=== PATIENT | male | born 1995 | race Caucasian/White ===

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

== ENCOUNTER 2018-07-26 14:21 | Inpatient (IN) ==
--- NOTE | 2018-07-26 15:09 | Emergency Department Note ---
Entered by Stephane Padgett acting as a scribe for Danilo Yu DO History of Present Illness General Chief complaint: Mental Health Evaluation Stated complaint: SUICIDAL IDEATION Source: patient Mode of arrival: ambulatory History of Present Illness Provider complaint: SI Onset (ago): week(s) 2 Location: head Pain Consistency: + constant Quality: + other (SI) Associated symptoms: no cough and no headaches Treatments prior to arrival: other (Antidepressants) Patient is a 22 year old male who presents himself to ER with complains of suicidal ideation starting 2 weeks ago. 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 Initially the antid epressants were prescribed for anxiety but he has noticed these suicidal thoughts to have started in the last few days. Patient reports earlier visiting [facility] and was told to come to the ER if symptoms get worse. He notes reporting having gone through a breakup earlier in the last week , heavy studying for his MCAT exam as well as some family issues, which may be exacerbating his symptoms. Patient denies alcohol or drug use. Patient also denies coughs and headaches. Home Medications Home Medications Medication Instructions Recorded Confirmed Type budesonide 0.6 mg PO BID 07/26/18 07/26/18 History doxycycline hyclate 100 mg PO DAILY 07/26/18 07/26/18 History escitalopram oxalate 10 mg PO DAILY 07/26/18 07/26/18 History lorazepam 0.5 mg PO BID PRN 07/26/18 07/26/18 History tretinoin 1 applic TOPICAL HS 07/26/18 07/26/18 History Allergies Allergy/AdvReac Type Severity Reaction Status Date / Time No Known Allergies Allergy Verified 03/26/18 19:16 Past Med/Surg History Medical History Epididymitis (Resolved) Asthma (Chronic) Anxiety (Chronic) Myalgia Recurrent sinusitis (Resolved) Sinusitis (Resolved) Suicidal thoughts URI (upper respiratory infection) (Resolved) Vomiting (Resolved) Social History Preferred Language: Japanese Communication Ability: Effective Store Group Manager Required: No Beliefs That Will Affect Care: None current occupational status: student Feels Safe at Home: Yes Smoking Status: Never smoker Review of Systems See HPI for pertinent positives & negatives. and A total of 10 systems reviewed and were otherwise negative Physical Exam Vital Signs Vital Signs - 24 hr 07/26/18 14:26 07/26/18 17:20 07/26/18 20:35 Temperature 36.8 C 36.7 C Temperature Source Oral Oral Sepsis Recent Fever Within 48 Hours No Sepsis New/Unexplained Change in Mental Status No Sepsis Action Taken by Nursing No Action Required Pulse Rate 59 L 62 Pulse Rate [Left Brachial] Pulse Rate [Right] 63 Pulse Rhythm [Left Brachial] Pulse Rhythm [Right] Pulse Strength [Left Brachial] Pulse Strength [Right] Respiratory Rate 16 18 18 Respiratory Effort / Characteristics Non-Labored Respiratory Depth Normal Respiratory Pattern Blood Pressure 137/80 135/67 Blood Pressure [Left Arm] Blood Pressure [Right Arm] 114/66 Blood Pressure Mean 99 Blood Pressure Mean [Left Arm] Blood Pressure Mean [Right Arm] 82 Blood Pressure Position [Left Arm] Blood Pressure Position [Right Arm] Pulse Oximetry 100 99 98 Oxygen Delivery Method Room Air Room Air Room Air 07/26/18 21:51 07/26/18 21:58 07/27/18 06:39 Temperature 36.8 C 36.5 C Temperature Source Oral Oral Sepsis Recent Fever Within 48 Hours Sepsis New/Unexplained Change in Mental Status Sepsis Action Taken by Nursing Pulse Rate Pulse Rate [Left Brachial] 55 L Pulse Rate [Right] 57 L Pulse Rhythm [Left Brachial] Regular Pulse Rhythm [Right] Regular Pulse Strength [Left Brachial] Normal Pulse Strength [Right] Normal Respiratory Rate 14 16 Respiratory Effort / Characteristics Non-Labored Non-Labored Non-Labored Respiratory Depth Normal Normal Respiratory Pattern Regular Regular Regular Blood Pressure Blood Pressure [Left Arm] 103/61 Blood Pressure [Right Arm] 129/76 Blood Pressure Mean Blood Pressure Mean [Left Arm] 75 Blood Pressure Mean [Right Arm] 93 Blood Pressure Position [Left Arm] Lying Blood Pressure Position [Right Arm] Sitting Pulse Oximetry Oxygen Delivery Method 07/27/18 06:40 Temperature Temperature Source Sepsis Recent Fever Within 48 Hours Sepsis New/Unexplained Change in Mental Status Sepsis Action Taken by Nursing Pulse Rate Pulse Rate [Left Brachial] 81 Pulse Rate [Right] Pulse Rhythm [Left Brachial] Regular Pulse Rhythm [Right] Pulse Strength [Left Brachial] Normal Pulse Strength [Right] Respiratory Rate Respiratory Effort / Characteristics Respiratory Depth Respiratory Pattern Blood Pressure Blood Pressure [Left Arm] 106/63 Blood Pressure [Right Arm] Blood Pressure Mean Blood Pressure Mean [Left Arm] 77 Blood Pressure Mean [Right Arm] Blood Pressure Position [Left Arm] Sitting Blood Pressure Position [Right Arm] Pulse Oximetry Oxygen Delivery Method GENERAL: Patient is awake alert in no acute distress patient is resting comfortably and showing no signs of anxiety EYES: The conjunctivae are clear. The pupils are round and reactive. EARS, NOSE, MOUTH AND THROAT: The nose is without any evidence of any deformity. Mucous membranes are moist tongue is midline NECK: The neck is nontender and supple. RESPIRATORY: Normal respiratory effort is noted there is no evidence of wheezing rhonchi or rales CARDIOVASCULAR: Regular rate and rhythm noted there no murmurs rubs or gallops normal S1 normal S2 GASTROINTESTINAL: The abdomen is soft. Bowel sounds are present in all quadrants. Abdomen is nontender MUSCULOSKELETAL/EXTREMITIES: There is no evidence of gross deformity full range of motion is noted in the hips and shoulders SKIN: There is no obvious evidence of any rash. There are no petechiae, pallor or cyanosis noted. NEUROLOGIC: Patient is awake alert and oriented x3 strength is symmetric patellar reflexes are 2+ bilaterally PSYCH: Affect is flat. Patient makes very poor eye contact. Patient is currently admitting to suicidal ideation with plan to overdose on pills. Course 1442: Past medical records reviewed. The patient was evaluated in room A7, and a complete history and physical examination were performed. 1833: I reevaluated the patient. 2020: Patient will be admitted for in patient care in [address] [place] [address]. He has verbalized agreement for treatment. Administered Medications Doxycycline Hyclate (Vibramycin) 100 mg PO DAILY [facility] Stop: 08/06/18 08:59 Last Admin: 07/27/18 09:05 Dose: 100 mg Documented by: [id number] Budesonide 0.6mg Caps: Non-Formulary Patient's Own Med 1 ea JOSE E BID DEENA Stop: 08/25/18 20:59 Last Admin: 07/27/18 09:07 Dose: Not Given Documented by: [id number] Admin: 07/26/18 21:31 Dose: 1 ea Documented by: [id number] Tretinoin Cream 0.05 %: Non-Formulary Patient's Own Med 1 ea TOP HS DEENA Stop: 08/25/18 21:59 Last Admin: 07/26/18 21:41 Dose: 1 ea Documented by: [id number] Discontinued Medications Lorazepam (Ativan) 1 mg PO NOW STA Stop: 07/26/18 16:39 Last Admin: 07/26/18 16:43 Dose: 1 mg Documented by: [id number] Medical Decision Making Differential Diagnosis differential includes toxic ingestions, self-mutilation, suicidal ideation, suicide attempt, depression. Medical Records Attestation: I reviewed the patient's medical records. Home Medications Current Medication List: was personally reviewed by me Laboratory Data Attestation: I reviewed the patient's lab results. Result diagrams: 07/26/18 17:07 07/26/18 17:07 Lab Results 07/26/18 07/26/18 07/26/18 Range/Units 15:00 15:00 17:07 WBC 6.24 (4.8-10.8) K/uL RBC 5.37 (4.7-6.1) M/uL Hgb 14.7 (14.0-18.0) g/dL Hct 44.2 (42-52) % MCV 82.3 (80-100) fL MCH 27.4 (25-34) pg MCHC 33.3 (32-36) g/dL RDW Std Deviation 37.1 (36.4-46.3) fL RDW Coeff of Tery 12.5 (11.5-14.5) % Plt Count 197 (130-400) K/uL MPV 10.3 (7.4-10.4) fL Immature Gran % (Auto) 0.2 % Neut % (Auto) 55.6 % Lymph % (Auto) 36.2 % Wallace % (Auto) 7.2 % Eos % (Auto) 0.5 % Baso % (Auto) 0.3 % Immature Gran # (Auto) 0.01 (0.00-0.02) K/uL Neut # (Auto) 3.47 (1.4-6.5) K/uL Lymph # (Auto) 2.26 (1.2-3.4) K/uL Wallace # (Auto) 0.45 (0.11-0.59) K/uL Eos # (Auto) 0.03 (0-0.5) K/uL Baso # (Auto) 0.02 (0-0.2) K/uL Sodium (136-145) mmol/L Potassium (3.5-5.1) mmol/L Chloride (98-107) mmol/L Carbon Dioxide (21-32) mmol/L Anion Gap (3-11) BUN (7-18) mg/dl Creatinine (0.6-1.4) mg/dl Est Cr Clr Drug Dosing ml/min Est GFR ( Amer) Est GFR (Non-Af Amer) BUN/Creatinine Ratio (10-20) Glucose (70-99) mg/dl Calcium (8.5-10.1) mg/dl Total Bilirubin (0.2-1) mg/dl AST (15-37) U/L ALT (12-78) U/L Alkaline Phosphatase (45-117) U/L Total Protein (6.4-8.2) gm/dl Albumin (3.4-5.0) gm/dl Globulin (2.5-4.0) gm/dl Albumin/Globulin Ratio (0.9-2) TSH (0.300-4.500) uIu/ml Urine Color Yellow Urine Appearance Clear (Clear) Urine pH 7.0 (4.5-7.5) Ur Specific Prentice 1.029 (1.000-1.030) Urine Protein Negative (Negative) Urine Glucose (UA) Negative (Negative) Urine Ketones Negative (Negative) Urine Blood Negative (Negative) Urine Nitrite Negative (Negative) Urine Bilirubin Negative (Negative) Urine Urobilinogen Negative (Negative) Ur Leukocyte Esterase Negative (Negative) Salicylates (2.8-20) mg/dl Urine Opiates Screen Neg (Neg) Ur Methadone, Qual Neg (Neg) Acetaminophen (10-30) ug/ml Urine Barbiturates Neg (Neg) Ur Phencyclidine (PCP) Neg (Neg) U Amphetamin/Meth Scrn Neg (Neg) MDMA (Ecstasy) Screen Neg (Neg) U Benzodiazepines Scrn Neg (Neg) Ur Cocaine Metabolite Neg (Neg) U Marijuana (THC) Screen Neg (Neg) Ethyl Alcohol mg/dL (0-3) mg/dl 07/26/18 07/26/18 07/26/18 Range/Units 17:07 17:07 17:07 WBC (4.8-10.8) K/uL RBC (4.7-6.1) M/uL Hgb (14.0-18.0) g/dL Hct (42-52) % MCV (80-100) fL MCH (25-34) pg MCHC (32-36) g/dL RDW Std Deviation (36.4-46.3) fL RDW Coeff of Trey (11.5-14.5) % Plt Count (130-400) K/uL MPV (7.4-10.4) fL Immature Gran % (Auto) % Neut % (Auto) % Lymph % (Auto) % Wallace % (Auto) % Eos % (Auto) % Baso % (Auto) % Immature Gran # (Auto) (0.00-0.02) K/uL Neut # (Auto) (1.4-6.5) K/uL Lymph # (Auto) (1.2-3.4) K/uL Wallace # (Auto) (0.11-0.59) K/uL Eos # (Auto) (0-0.5) K/uL Baso # (Auto) (0-0.2) K/uL Sodium 140 (136-145) mmol/L Potassium 3.7 (3.5-5.1) mmol/L Chloride 105 (98-107) mmol/L Carbon Dioxide 31 (21-32) mmol/L Anion Gap 4.0 (3-11) BUN 12 (7-18) mg/dl Creatinine 1.12 (0.6-1.4) mg/dl Est Cr Clr Drug Dosing 96.9 ml/min Est GFR ( Amer) 109.0 Est GFR (Non-Af Amer) 94.1 BUN/Creatinine Ratio 10.6 (10-20) Glucose 104 H (70-99) mg/dl Calcium 8.8 (8.5-10.1) mg/dl Total Bilirubin 0.5 (0.2-1) mg/dl AST 18 (15-37) U/L ALT 22 (12-78) U/L Alkaline Phosphatase 51 (45-117) U/L Total Protein 7.6 (6.4-8.2) gm/dl Albumin 4.2 (3.4-5.0) gm/dl Globulin 3.4 (2.5-4.0) gm/dl Albumin/Globulin Ratio 1.2 (0.9-2) TSH 0.701 (0.300-4.500) uIu/ml Urine Color Urine Appearance (Clear) Urine pH (4.5-7.5) Ur Specific Prentice (1.000-1.030) Urine Protein (Negative) Urine Glucose (UA) (Negative) Urine Ketones (Negative) Urine Blood (Negative) Urine Nitrite (Negative) Urine Bilirubin (Negative) Urine Urobilinogen (Negative) Ur Leukocyte Esterase (Negative) Salicylates < 1.7 L (2.8-20) mg/dl Urine Opiates Screen (Neg) Ur Methadone, Qual (Neg) Acetaminophen < 2 L (10-30) ug/ml Urine Barbiturates (Neg) Ur Phencyclidine (PCP) (Neg) U Amphetamin/Meth Scrn (Neg) MDMA (Ecstasy) Screen (Neg) U Benzodiazepines Scrn (Neg) Ur Cocaine Metabolite (Neg) U Marijuana (THC) Screen (Neg) Ethyl Alcohol mg/dL < 3.0 (0-3) mg/dl Imaging Data Attestation: I personally reviewed and interpreted this imaging study as follows: Radiologist's Impression: Radiology results as stated below per my review and the radiologist's interpretation: Blood Pressure Blood Pressure Findings: Normal blood pressure MDM Narrative The patient is a 22-year-old male who presented to the emergency department for an evaluation of mental health issues. The patient has been having worsening anxiety as well as depression. He started having thoughts of wanting to hurt himself. The patient is under significant stressors recently. He also had a recent breakup which caused in addition to his stressors including his college work. The patient was medically cleared in the emergency department. He was treated with Ativan in the emergency department and was feeling much better. I discussed his case with the emergency department mental health shoe parts caser. They did evaluate the patient in the emergency department. At this time the patient is agreeable to inpatient management and I do feel that he would benefit from inpatient treatment at this time. He is currently being evaluated by [facility] for possible inpatient treatment at our facility. Impression & Plan Anxiety, Suicidal thoughts, Depression Discharge Plan Visit Data *Final* Discharge Date/Time: 07/26/18 20:35 Chief Complaint: Mental Health Evaluation Stated Complaint: SUICIDAL IDEATION ED Provider: Danilo Yu Discharge Problem: Anxiety, Suicidal thoughts, Depression Patient Disposition: Admitted As Inpatient Discharge Instructions Interventions: ED Discharge Assessment Last Done: 07/26/18 20:35 Discharge Problem: Depression Qualifiers: Depression Type: unspecified Qualified Code(s): F32.9 - Major depressive disorder, single episode, unspecified The scribe's documentation has been prepared under my direction and personally reviewed by me in its entirety. I confirm that the note above accurately reflects all work, treatment, procedures, and medical decision making performed by me.
[2018-07-26 15:11] LABS: Appearance Urine Clear (Clear); Bilirubin Urine Negative (Negative); Blood Urine Negative (Negative); Color Urine Yellow; Glucose Urine UA Negative (Negative); Ketones Urine Negative (Negative); Leukocyte Esterase Urine Negative (Negative); Nitrite Urine Negative (Negative); Protein Urine Negative (Negative); Specific Gravity Urine 1.029 (1.000-1.030); Urobilinogen Urine Negative (Negative)
[2018-07-26] MEDS ORDERED: LORazepam 1 MG TAB PO STA (16:38)
[2018-07-26 16:39] LABS: Amphetamines+Metham, Urine Neg (Neg); Barbiturates, Urine Neg (Neg); Benzodiazepine, Urine Neg (Neg); Cocaine, Urine Neg (Neg); MDMA (Ecstacy), Urine Neg (Neg); Methadone, Urine Neg (Neg); Opiate, Urine Neg (Neg); Phencyclidine, Urine Neg (Neg)
[2018-07-26 17:21] LABS: Basophils # (auto) 0.02 K/uL (0-0.2); Basophils % (auto) 0.3 %; Eosinophils # (auto) 0.03 K/uL (0-0.5); Eosinophils % (auto) 0.5 %; Hematocrit (blood only) 44.2 % (42-52); Hemoglobin 14.7 g/dL (14.0-18.0); Immature Granulocytes # (auto) 0.01 K/uL (0.00-0.02); Immature Granulocytes % (auto) 0.2 %; Lymphocytes # (auto) 2.26 K/uL (1.2-3.4); Lymphocytes % (auto) 36.2 %; Mean Corpuscular Hgb Conc 33.3 g/dL (32-36); Mean Corpuscular Volume 82.3 fL (80-100); Mean Platelet Volume 10.3 fL (7.4-10.4); Monocytes # (auto) 0.45 K/uL (0.11-0.59); Monocytes % (auto) 7.2 %; Neutrophils # (auto) 3.47 K/uL (1.4-6.5); Neutrophils % (auto) 55.6 %; Platelet Count 197 K/uL (130-400); RDW Coefficient of Variation 12.5 % (11.5-14.5); RDW Standard Deviation 37.1 fL (36.4-46.3); Red Blood Count 5.37 M/uL (4.7-6.1); White Blood Count 6.24 K/uL (4.8-10.8)
[2018-07-26 17:41] LABS: Albumin Globulin Ratio 1.2 (0.9-2); Albumin Level 4.2 gm/dl (3.4-5.0); BUN Creatinine Ratio 10.6 (10-20); Bilirubin,Total 0.5 mg/dl (0.2-1); Calcium 8.8 mg/dl (8.5-10.1); Creatinine Clr Calc Pharmacy 96.9 ml/min; Est GFR (Non-African American) 94.1; Globulin 3.4 gm/dl (2.5-4.0); Potassium 3.7 mmol/L (3.5-5.1); Total Protein 7.6 gm/dl (6.4-8.2)
[2018-07-26 17:53] LABS: Acetaminophen < 2 ug/ml (10-30); Salicylate < 1.7 mg/dl (2.8-20)
[2018-07-26] MEDS ORDERED: ACETAMINOPHEN 325 MG TAB PO PRN ×2 (20:39→20:59)
[2018-07-26] MEDS ORDERED: BISMUTH SUBSALICYLATE PER ML OMNICELL CHARGE PO PRN ×2 (20:39→20:59)
[2018-07-26] MEDS ORDERED: ALUMINUM/MAGNESIUM SUSP 30 ML UDC PO PRN ×2 (20:39→20:59)
[2018-07-26] MEDS ORDERED: MAGNESIUM HYDROXIDE SUSP 30 ML UDC PO PRN ×2 (20:39→20:59)
[2018-07-26] MEDS ORDERED: SODIUM CHLORIDE 0.65% NA SOLN 45 ML (OCEAN) PRN ×2 (20:39→20:59)
[2018-07-26] MEDS: BUDESONIDE NAE SCH (21:31)
[2018-07-26] MEDS: TRETINOIN 0.05% TOP SCH (21:41)
[2018-07-26] MEDS ORDERED: NON-FORMULARY PATIENT'S OWN MED TOP SCH (22:00)
[2018-07-27] MEDS: DOXYCYCLINE HYCLATE 100 MG CAP PO SCH (09:05)
[2018-07-27] MEDS: BUDESONIDE NAE SCH ×2 (09:07→22:30)
--- NOTE | 2018-07-27 11:14 | History & Physical ---
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 He has been on Lexapro for the last 2 weeks, currently at 10 mg. He had some concerns it was contributing to suicidal thinking but at the same time admits that this was going on prior to starting medications. He also endorses periods of what he describes as euphoria although I believe these to be subclinical and do not meet criteria for bipolar disorder, but it bears monitoring over time. He agrees at this time to continue to titrate the dose of Lexapro to 20 mg daily and to report any worsening to suicidal ideation or activation. He does not want his father involved in his treatment although is willing to have his mother involved in meetings. He reports that there are financial barriers with his current insurance in getting a therapist and so will have social work explore what options are available to him. He will also need a psychiatric prescriber post d ischarge. We will be in contact with the student care and advocacy department as needed. At this time, the patient requires inpatient mental health treatment due to the severity of his condition and the risk for self-harm if discharged. (1) Depression: 07/27 - Increase Lexapro to 20 mg daily and monitor for increase in SI or activation - Q 15 min checks for safety - Encourage participation in group and individual counseling - Assist the patient to explore healthy coping strategies - Encourage participation in group and individual counseling - Family meeting - Contact the Office of Student Care and Advocacy as needed. - Safety planning - Aftercare planning Depression Type: unspecified Qualified Code(s): F32.9 - Major depressive disorder, single episode, unspecified Present on Admission?: Yes (2) Anxiety: 07/27 - Will continue to evaluate/differentiate between JILLIAN, OCD and anxiety associated only with depression - Assist the patient to explore mindfulness/grounding exercises - Medications as above. Present on Admission?: Yes Inventory Assets Strengths: Intelligence, feels he is a good role model for his siblings Needs: Healthy coping strategies Risk Factors Assessment Male: Yes : No Do You Have Access To A Gun?: No Health Problems: No Mental Health Diagnoses: Yes Substance Use Disorders: No Previous Attempt: Yes Family History of Suicide: No Previous Psychiatric Hospitalization: No Hopelessness: No Smoker: No Protective Factors Assessment : No Responsible for Young Children: No Employed: No Stable Relationships: No Supportive Family: Yes Psychiatric History Identifying Data TARSHA FORBES is a 22-year-old [employer] student, who is admitted voluntarily with severe depression and suicidal thoughts to overdose in the setting of multiple stressors including family, relationship and school. Information is gathered from the patient and considered to be reliable. Chief Complaint "It has been a rough couple of weeks.". 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 He first began to experience symptoms long ago when his father who was a carbon sequestration plant operator, was sent to senior living for insurance violations. He was in senior living from the patient's age of 7 until he was a senior in high school. At that point his father returned to the family, it was very conflictual between he and his mother and so the father left the house. They went on to divorce but father remains in the [facility]. He remained living with his mother who is currently selling their home and asking him to participate in that process. He has had multiple episodes over the years of times when he feels as if he forgets long periods of time as if dissociating. During one such a stressful time 5 years ago he did make suicide attempts and says that he has large periods of that time that he did not remember. More recently, several weeks ago, he met with his father to review MCATs for which the patient is studying and will take in August. At the time he saw his father his father also told him he was seeing another woman but did not want to tell his mother. This made the patient feel as if he was keeping a secret and declined the opportunity to meet this woman until such time as father informed mother. He also told the patient that same weekend that his grandfather had been diagnosed with cancer. The final blow came when his girlfriend came to visit. He thought that this would be helpful and supportive but it turned out to be a very difficult weekend, with the girlfriend not being supportive and treating him badly. For the first time in his life that weekend, he drank and was upset with himself for doing so as his father has had known problems with alcohol in the past. About 2 weeks ago after the girlfriend officially broke up with him, he went to see his PCP who then prescribed Lexapro. He was concerned that it may have slightly increased his suicidal thinking, called his PCP, who encouraged him to fight through it and increase the dose to 10 mg. The PCP also prescribed Ativan 0.5 mg twice daily which only served to make him tired. Friday he was feeling very depressed and anxious and says that he was reported to have called a friend which he doesn't remember doing. On Friday a friend came to visit, and found that he had gotten all of his pills out and she was worried that he had overdosed on them given that he appeared confused. He says that he was then brought to the ER after his friend called 911. Today her remains depressed, anxious and continues to have thoughts of suicide. He is ambivalent about being here, not knowing how it will help, but admits that if his friend had not shown up there was a high likelihood that he would have overdosed. He reports that prior to taking medications, he would sleep only 2-4 hrs per night, waking with panic attacks about his studies. Since medications he is sleeping to excess. Appetite has been down and is having to force himself to eat. Although he initially says that he does not see himself as a chronically anxious person, he goes on to say that he has a chronic need for neatness, and that it worsens when anxious, providing the example that when his girlfriend recently visited and things weren't going well, he had to excuse himself and cleaned to floors to cope. His girlfriend also said that she couldn't cope with his high level of anxiety. During times of high stress he has had multiple episode during which he doesn't remember his actions similar to Friday night. He denies aud/vis hallucinations. He denies SIB or symptoms of eating disorder. In terms of possible bipolar symptoms, he endorses times that he feels his moods cycle, including times of "euphoria" during which his sleep is "consistent", energy "pretty good", but does not endorse an increase in goal directed behaviors, spending behaviors or risk taking. Past Psychiatric History Previous Psych History: None. Has tried to access therapy, but can't afford with current insurance Current Psychiatric Diagnosis: Depression and anxiety Outpatient Services: PCP prescribes Lexapro and ativan Previous Psych Admissions: None Do You Have Access To A Gun?: No History of Previous Suicide Attempt: Yes Describe Attempts in the Past: Overdose 5 years ago on prescription medication Past Medication Trials: None Allergies Allergy/AdvReac Type Severity Reaction Status Date / Time No Known Allergies Allergy Verified 03/26/18 19:16 Home Medications Home Medications Medication Instructions Recorded Confirmed Type budesonide 0.6 mg PO BID 07/26/18 07/26/18 History doxycycline hyclate 100 mg PO DAILY 07/26/18 07/26/18 History escitalopram oxalate 10 mg PO DAILY 07/26/18 07/26/18 History lorazepam 0.5 mg PO BID PRN 07/26/18 07/26/18 History tretinoin 1 applic TOPICAL HS 07/26/18 07/26/18 History Family History Family History of: Depression and Alcoholism/Drug Abuse Family Mental Health History Comment: Mom-depression Dad-DID and alcholism Alcohol History Hx of Alcohol Use Over the Past 12 Months: No AUDIT Total Score: 0 Smoking Use Have You Smoked or Used Tobacco Products in the Last 30 Days: No Smoking Status: Never smoker Substance History Hx of Prescription Med Misuse Over the Past 12 Months: No Hx of Over the Counter Med Misuse Over the Past 12 Months: No Hx of Inhalent Misuse Over the Past 12 Months: No Hx of Organic Substance Use Over the Past 12 Months: No Hx of Illegal Substances/Street Drug Use Over Past 12 Months: No Problems as a Result of Past Substance Use: None Identified Personal History Living Arrangements: APartment Childhood: Grew up in [place]. Raised by father (carbon sequestration plant operator) and mother until father went to prison when he was 7, returing when Tarsha was in high school. has on lisandra schneider and one younger sister Highest Grade Completed: College Highest Grade Completed Comment: Premed major, robb GPA 3.8 Employment Status: Student Beliefs That Will Affect Care: None Current Legal Problems: No Hx Legal Problems: No Hx Traumatic Life Events: Yes Psychological Trauma History Comment: Father with personality changes, sometimes aggressive Patient History Medical History Epididymitis (Resolved) Asthma (Chronic) Anxiety (Chronic) Myalgia Recurrent sinusitis (Resolved) Sinusitis (Resolved) Suicidal thoughts URI (upper respiratory infection) (Resolved) Vomiting (Resolved) Social History Preferred Language: Slovak Communication Ability: Effective Tallow Refiner Required: No Beliefs That Will Affect Care: None current occupational status: student Feels Safe at Home: Yes Smoking Status: Never smoker Review of Systems All systems reviewed & are unremarkable except as noted in HPI & below chest pain and SOB with panic attacks Gastrointestinal: + nausea (usually in the AM) Physical Exam Psychiatric Orientation: alert, oriented x 3 and cooperative Apperance: appropriately dressed (wrapped in a blanket) and appropriately groomed Eye Contact: good eye contact Motor Behavior: steady gait and station and no abnormal motor movements Speech: normal rate/rhythm/volume of speech Affect: + blunted affect Mood: + depressed mood and + anxious mood Thought Process: goal directed thought process Thought Content: reality based without delusions Suicidal Thoughts: + reports suicidal thoughts and + reports suicidal plan (thoughts to overdose. Researched dosages necessary to succeed) Homicidal Thoughts: denies homicidal thoughts Hallucinations: no auditory hallucinations and no visual hallucinations Cognition: recent memory grossly intact, remote memory grossly intact, attention grossly intact and language grossly intact with the exception of period of time Friday night when he called a friend Estimated Intelligence: average estimated intelligence Insight: + impaired insight Judgement: + impaired judgement Vital Signs (Past 24 Hours) Last Vital Signs Temp 36.5 C 07/27/18 06:39 Pulse 81 07/27/18 06:40 Resp 16 07/27/18 06:39 BP 106/63 07/27/18 06:40 Pulse Ox 98 07/26/18 20:35 Results & Data Laboratory Results Laboratory Results - last 24 hr 07/26/18 07/26/18 07/26/18 15:00 15:00 17:07 WBC 6.24 RBC 5.37 Hgb 14.7 Hct 44.2 MCV 82.3 MCH 27.4 MCHC 33.3 RDW Std Deviation 37.1 RDW Coeff of Trey 12.5 Plt Count 197 MPV 10.3 Immature Gran % (Auto) 0.2 Neut % (Auto) 55.6 Lymph % (Auto) 36.2 Ware % (Auto) 7.2 Eos % (Auto) 0.5 Baso % (Auto) 0.3 Immature Gran # (Auto) 0.01 Neut # (Auto) 3.47 Lymph # (Auto) 2.26 Ware # (Auto) 0.45 Eos # (Auto) 0.03 Baso # (Auto) 0.02 Sodium Potassium Chloride Carbon Dioxide Anion Gap BUN Creatinine Est Cr Clr Drug Dosing Est GFR ( Amer) Est GFR (Non-Af Amer) BUN/Creatinine Ratio Glucose Calcium Total Bilirubin AST ALT Alkaline Phosphatase Total Protein Albumin Globulin Albumin/Globulin Ratio TSH Urine Color Yellow Urine Appearance Clear Urine pH 7.0 Ur Specific Dixie 1.029 Urine Protein Negative Urine Glucose (UA) Negative Urine Ketones Negative Urine Blood Negative Urine Nitrite Negative Urine Bilirubin Negative Urine Urobilinogen Negative Ur Leukocyte Esterase Negative Salicylates Urine Opiates Screen Neg Ur Methadone, Qual Neg Acetaminophen Urine Barbiturates Neg Ur Phencyclidine (PCP) Neg U Amphetamin/Meth Scrn Neg MDMA (Ecstasy) Screen Neg U Benzodiazepines Scrn Neg Ur Cocaine Metabolite Neg U Marijuana (THC) Screen Neg Ethyl Alcohol mg/dL 07/26/18 07/26/18 07/26/18 17:07 17:07 17:07 WBC RBC Hgb Hct MCV MCH MCHC RDW Std Deviation RDW Coeff of Trey Plt Count MPV Immature Gran % (Auto) Neut % (Auto) Lymph % (Auto) Ware % (Auto) Eos % (Auto) Baso % (Auto) Immature Gran # (Auto) Neut # (Auto) Lymph # (Auto) Ware # (Auto) Eos # (Auto) Baso # (Auto) Sodium 140 Potassium 3.7 Chloride 105 Carbon Dioxide 31 Anion Gap 4.0 BUN 12 Creatinine 1.12 Est Cr Clr Drug Dosing 96.9 Est GFR ( Amer) 109.0 Est GFR (Non-Af Amer) 94.1 BUN/Creatinine Ratio 10.6 Glucose 104 H Calcium 8.8 Total Bilirubin 0.5 AST 18 ALT 22 Alkaline Phosphatase 51 Total Protein 7.6 Albumin 4.2 Globulin 3.4 Albumin/Globulin Ratio 1.2 TSH 0.701 Urine Color Urine Appearance Urine pH Ur Specific Dixie Urine Protein Urine Glucose (UA) Urine Ketones Urine Blood Urine Nitrite Urine Bilirubin Urine Urobilinogen Ur Leukocyte Esterase Salicylates < 1.7 L Urine Opiates Screen Ur Methadone, Qual Acetaminophen < 2 L Urine Barbiturates Ur Phencyclidine (PCP) U Amphetamin/Meth Scrn MDMA (Ecstasy) Screen U Benzodiazepines Scrn Ur Cocaine Metabolite U Marijuana (THC) Screen Ethyl Alcohol mg/dL < 3.0 Current Inpatient Medications Current Inpatient Medications: Current Inpatient Medications Acetaminophen (Tylenol) 650 mg PO Q4H PRN PRN Reason: Headache or Minor Fever Stop: 08/25/18 20:58 Al Hydrox/Mg Hydrox/Simethicone (Maalox) 30 ml PO Q4H PRN PRN Reason: GI Upset Stop: 08/25/18 20:58 Bismuth Subsalicylate (Kaopectate) 15 ml PO PRN PRN PRN Reason: Loose Stool Stop: 08/25/18 20:58 Doxycycline Hyclate (Vibramycin) 100 mg PO DAILY DEENA Stop: 08/06/18 08:59 Last Admin: 07/27/18 09:05 Dose: 100 mg Documented by: Escitalopram Oxalate (Lexapro) 20 mg PO QAM DEENA Stop: 08/26/18 11:14 Hydroxyzine HCl (Vistaril) 25 mg PO Q4H PRN PRN Reason: Anxiety Stop: 08/25/18 20:58 Hydroxyzine HCl (Vistaril) 50 mg PO HS PRN PRN Reason: Insomnia Stop: 08/26/18 08:21 Magnesium Hydroxide (Milk Of Magnesia) 30 ml PO DAILY PRN PRN Reason: Heartburn Stop: 08/25/18 20:58 Budesonide 0.6mg Caps: Non-Formulary Patient's Own Med 1 ea JOSE E BID DEENA Stop: 08/25/18 20:59 Last Admin: 07/27/18 09:07 Dose: Not Given Documented by: Tretinoin Cream 0.05 %: Non-Formulary Patient's Own Med 1 ea TOP HS DEENA Stop: 08/25/18 21:59 Last Admin: 07/26/18 21:41 Dose: 1 ea Documented by: Sodium Chloride ([place] Nasal) 1 - 2 sprays NA PRN PRN PRN Reason: Nasal Dryness/Congestion Stop: 08/25/18 20:58 CPT Code CPT Code Initial Hospital Care: [id number]
[2018-07-27] MEDS: ESCITALOPRAM OXALATE 20 MG TAB PO SCH (12:39)
[2018-07-27] MEDS: TRETINOIN 0.05% TOP SCH (23:34)
[2018-07-28] MEDS: ESCITALOPRAM OXALATE 20 MG TAB PO SCH (08:40)
[2018-07-28] MEDS: DOXYCYCLINE HYCLATE 100 MG CAP PO SCH (08:41)
[2018-07-28] MEDS: BUDESONIDE NAE SCH ×2 (08:47→21:40)
--- NOTE | 2018-07-28 12:43 | Psychiatric Progress Note ---
Date of Service July 28, 2018 Impression / Recommendations Impression ADjusting well to the structure and support of the milieu, making good use of both group and individual therapy. Tolerating higher dose of Lexapro so will continue. Will need a family meeting, safety planning and aftercare planning. (1) Depression: 07/27 - Increase Lexapro to 20 mg daily and monitor for increase in SI or activation - Q 15 min checks for safety - Encourage participation in group and individual counseling - Assist the patient to explore healthy coping strategies - Encourage participation in group and individual counseling - Family meeting - Contact the Office of Student Care and Advocacy as needed. - Safety planning - Aftercare planning 07/28 - Continue current meds and plan - Family meeting - Safety planning (2) Anxiety: 07/27 - Will continue to evaluate/differentiate between JILLIAN, OCD and anxiety associated only with depression - Assist the patient to explore mindfulness/grounding exercises - Medications as above. 07/28 - Continue current meds and plan Inventory Assets Strengths: Intelligence, feels he is a good role model for his siblings Needs: Healthy coping strategies Risk Factors Assessment Male: Yes : No Do You Have Access To A Gun?: No Health Problems: No Mental Health Diagnoses: Yes Substance Use Disorders: No Previous Attempt: Yes Family History of Suicide: No Previous Psychiatric Hospitalization: No Hopelessness: No Smoker: No Protective Factors Assessment : No Responsible for Young Children: No Employed: No Stable Relationships: No Supportive Family: Yes Interval History Identifying Information 22 yo [employer] student admitted voluntarily with severe depression, anxiety and suicidality in the setting of multiple stressors. Chief Complaint "I'm OK. ". Review of Systems Sleep Information Total Hours of Sleep: 6 Sleep Comments: pt on q-15 minute checks Meal Information Percent Meal Consumed - Breakfast: 100 Percent Meal Consumed - Lunch: 70 Percent Meal Consumed - Dinner: 100 Subjective Subjective Patient was seen & assessed and interval progress reviewed with Treatment Team. The patient says that he is adjusting to being on the unit, talking to the staff and his peers about his relationships. He is still grieving the loss of his girlfriend and realizes that he has allowed her statements about his anxiety being a problem, to get in the way of him reaching out for support from other friends "If it was a problem for her I assumed it would be a problem for others as well.". He talked with his best friend last evening, telling him about his condition, and the friend cried, he was so upset. Tarsha has been diagraming a web depicting his friends and supports, with himself at the middle of the web, just to reinforce the number of supports he has outside of the hospital. He talked with his mother as well and she plans to come visit. he has talked with his father to keep him updated, but is still trying to keep some distance there, not wanting him to come visit. Tarsha reported poor sleep last night, initial insomnia and didn't come out for meds until it was too late to receive any. He also continues to report anxiety, feeling "lost", but denies SI today. He d enies side effects to meds. Physical Exam Psychiatric Orientation: alert and cooperative Apperance: appropriately dressed (wearing a blanket) and appropriately groomed Eye Contact: good eye contact Motor Behavior: steady gait and station and no abnormal motor movements Speech: normal rate/rhythm/volume of speech Affect: euthymic affect Mood: + anxious mood; no depressed mood Thought Process: goal directed thought process Thought Content: reality based without delusions Suicidal Thoughts: denies suicidal thoughts Homicidal Thoughts: denies homicidal thoughts Hallucinations: no auditory hallucinations and no visual hallucinations Cognition: recent memory grossly intact, remote memory grossly intact, attention grossly intact and language grossly intact Estimated Intelligence: average estimated intelligence Insight: + limited insight Judgement: + limited judgement Vital Signs (Past 24 Hours) Last Vital Signs Temp 36.7 C 07/28/18 06:44 Pulse 79 07/28/18 06:45 Resp 16 07/28/18 06:44 BP 114/65 07/28/18 06:45 Pulse Ox 98 07/26/18 20:35 Results & Data Current Inpatient Medications Current Inpatient Medications: Current Inpatient Medications Acetaminophen (Tylenol) 650 mg PO Q4H PRN PRN Reason: Headache or Minor Fever Stop: 08/25/18 20:58 Al Hydrox/Mg Hydrox/Simethicone (Maalox) 30 ml PO Q4H PRN PRN Reason: GI Upset Stop: 08/25/18 20:58 Bismuth Subsalicylate (Kaopectate) 15 ml PO PRN PRN PRN Reason: Loose Stool Stop: 08/25/18 20:58 Doxycycline Hyclate (Vibramycin) 100 mg PO DAILY DEENA Stop: 08/06/18 08:59 Last Admin: 07/28/18 08:41 Dose: 100 mg Documented by: Escitalopram Oxalate (Lexapro) 20 mg PO QAM DEENA Stop: 08/26/18 11:14 Last Admin: 07/28/18 08:40 Dose: 20 mg Documented by: Hydroxyzine HCl (Vistaril) 25 mg PO Q4H PRN PRN Reason: Anxiety Stop: 08/25/18 20:58 Hydroxyzine HCl (Vistaril) 50 mg PO HS PRN PRN Reason: Insomnia Stop: 08/26/18 08:21 Magnesium Hydroxide (Milk Of Magnesia) 30 ml PO DAILY PRN PRN Reason: Heartburn Stop: 08/25/18 20:58 Budesonide 0.6mg Caps: Non-Formulary Patient's Own Med 1 ea JOSE E BID DEENA Stop: 08/25/18 20:59 Last Admin: 07/28/18 08:47 Dose: Not Given Documented by: Tretinoin Cream 0.05 %: Non-Formulary Patient's Own Med 1 ea TOP HS DEENA Stop: 08/25/18 21:59 Last Admin: 07/27/18 23:34 Dose: 1 ea Documented by: Sodium Chloride ([place] Nasal) 1 - 2 sprays NA PRN PRN PRN Reason: Nasal Dryness/Congestion Stop: 08/25/18 20:58 Post Discharge Appointments Primary Care Physician Name Of Family Doctor: [facility] Provider Appointment Comment: Please follow up as needed Psychiatrist Name of Psychiatrist: ROSE Psychiatrist's Therapist Name of Therapist: ROSE Therapist's Voip Engineer Name of Voip Engineer: Student Care and Advocacy Phone Number for Voip Engineer: [phone] Case Management Appointment Comment: [address] [place] [address] Contact Information Discharge Discharge [address]: [address] [place] [address] RAINE Tadeo [address] CPT Code CPT Code 90672 (1) Depression Depression Type: unspecified Qualified Code(s): F32.9 - Major depressive disorder, single episode, unspecified
[2018-07-28] MEDS: TRETINOIN 0.05% TOP SCH (22:06)
[2018-07-29] MEDS: ESCITALOPRAM OXALATE 20 MG TAB PO SCH (09:29)
[2018-07-29] MEDS: DOXYCYCLINE HYCLATE 100 MG CAP PO SCH (09:29)
[2018-07-29] MEDS: BUDESONIDE NAE SCH ×2 (09:31→21:11)
--- NOTE | 2018-07-29 09:51 | Psychiatric Progress Note ---
Date of Service July 29, 2018 Impression / Recommendations Impression Patient is tolerating medication well, mood is improving, and he is actively engaged in treatment and processing his multiple stressors. He has a family meeting with his mother tomorrow where he will discuss some difficult topics, and is being referred for outpatient treatment at [facility]. Sleep remains poor, and he is failed multiple medication trials, so we will start a trial of trazodone tonight. (1) Depression: 07/27 - Increase Lexapro to 20 mg daily and monitor for increase in SI or activation - Q 15 min checks for safety - Encourage participation in group and individual counseling - Assist the patient to explore healthy coping strategies - Encourage participation in group and individual counseling - Family meeting - Contact the Office of Student Care and Advocacy as needed. - Safety planning - Aftercare planning 07/28 - Continue current meds and plan - Family meeting - Safety planning 07/29 -Continue escitalopram 20 mg daily. Discontinue hydroxyzine for sleep as patient reports it was poorly effective, and start trial of trazodone 50 mg at bedtime as needed, may repeat x1 before midnight. Reviewed risks, benefits, and side effects, including the risk of morning sedation and priapism. -Family meeting with mother tomorrow. -Refer for outpatient treatment. (2) Anxiety: 07/27 - Will continue to evaluate/differentiate between JILLIAN, OCD and anxiety associated only with depression - Assist the patient to explore mindfulness/grounding exercises - Medications as above. 07/28 - Continue current meds and plan Inventory Assets Strengths: Intelligence, feels he is a good role model for his siblings Needs: Healthy coping strategies Risk Factors Assessment Male: Yes : No Do You Have Access To A Gun?: No Health Problems: No Mental Health Diagnoses: Yes Substance Use Disorders: No Previous Attempt: Yes Family History of Suicide: No Previous Psychiatric Hospitalization: No Hopelessness: No Smoker: No Protective Factors Assessment : No Responsible for Young Children: No Employed: No Stable Relationships: No Supportive Family: Yes Interval History Identifying Information 22 yo [employer] student admitted voluntarily with severe depression, anxiety and suicidality in the setting of multiple stressors. Chief Complaint "Okay, better". Review of Systems Sleep Information Total Hours of Sleep: 6 Sleep Comments: pt given vistaril per rn. pt on q-15 minute checks Meal Information Percent Meal Consumed - Breakfast: 100 Percent Meal Consumed - Lunch: 100 Percent Meal Consumed - Dinner: 100 Subjective Subjective Patient was seen & assessed and interval progress reviewed with Treatment Team. Staff report he is engaged in treatment, has a meeting with his mother tomorrow, and [facility] agreed to see him for follow up. On my assessment today, he reports mood is improving, and he feels safe here, without suicidal thoughts. He is processing his stressors in group and with counseling staff one on one. He feels overwhelmed with his parental relationships, and hopes to address some of this in the meeting with his mother tomorrow. She brings up his father a lot (wanting to know why the patient has contact with him), which causes him to feel guilty. He is also bothered that his father is seeing someone and he knows, but his mother doesn't. She tends to confide excessively in the patient, and relies on him to deal with financial issues (like selling the family home) that he feels overwhelmed be. She is easily upset and he feels like he has to be careful not to hurt or offend her when he tries to talk to her about these things. He denies side effects to the increased dose of escitalopram, but reports difficulty falling asleep (taking 1-2 hours) and staying asleep (waking up 3-5 times), for which he has tried lorazepam (oversedating - daytimes as well) and melatonin (10mg x 1 week only helped mildly). He tried hydroxyzine here (75mg last night) which he does not think was helpful. He would like something else f or sleep. Physical Exam Psychiatric Orientation: alert, oriented x 3 and cooperative Apperance: appropriately dressed, appropriately groomed and appeared stated age Eye Contact: good eye contact Motor Behavior: steady gait and station and no abnormal motor movements Speech: normal rate/rhythm/volume of speech Affect: euthymic affect Improved Thought Process: linear/logical thought process Thought Content: reality based without delusions Suicidal Thoughts: denies suicidal thoughts Homicidal Thoughts: denies homicidal thoughts Hallucinations: no auditory hallucinations Cognition: recent memory grossly intact and language grossly intact Estimated Intelligence: + above average estimated intelligence Insight: good insight Judgement: good judgement Vital Signs (Past 24 Hours) Last Vital Signs Temp 36.6 C 07/29/18 06:42 Pulse 64 03/20/19 06:42 Resp 16 07/29/18 06:42 BP 119/76 07/29/18 06:42 Pulse Ox 98 07/26/18 20:35 Results & Data Current Inpatient Medications Current Inpatient Medications: Current Inpatient Medications Acetaminophen (Tylenol) 650 mg PO Q4H PRN PRN Reason: Headache or Minor Fever Stop: 08/25/18 20:58 Al Hydrox/Mg Hydrox/Simethicone (Maalox) 30 ml PO Q4H PRN PRN Reason: GI Upset Stop: 08/25/18 20:58 Bismuth Subsalicylate (Kaopectate) 15 ml PO PRN PRN PRN Reason: Loose Stool Stop: 08/25/18 20:58 Doxycycline Hyclate (Vibramycin) 100 mg PO DAILY DEENA Stop: 08/06/18 08:59 Last Admin: 07/29/18 09:29 Dose: 100 mg Documented by: Escitalopram Oxalate (Lexapro) 20 mg PO QAM DEENA Stop: 08/26/18 11:14 Last Admin: 07/29/18 09:29 Dose: 20 mg Documented by: Hydroxyzine HCl (Vistaril) 25 mg PO Q4H PRN PRN Reason: Anxiety Stop: 08/25/18 20:58 Last Admin: 07/28/18 23:18 Dose: 25 mg Documented by: Hydroxyzine HCl (Vistaril) 50 mg PO HS PRN PRN Reason: Insomnia Stop: 08/26/18 08:21 Last Admin: 07/28/18 22:06 Dose: 50 mg Documented by: Magnesium Hydroxide (Milk Of Magnesia) 30 ml PO DAILY PRN PRN Reason: Heartburn Stop: 08/25/18 20:58 Budesonide 0.6mg Caps: Non-Formulary Patient's Own Med 1 ea JOSE E BID DEENA Stop: 08/25/18 20:59 Last Admin: 07/29/18 09:31 Dose: Not Given Documented by: Tretinoin Cream 0.05 %: Non-Formulary Patient's Own Med 1 ea TOP HS DEENA Stop: 08/25/18 21:59 Last Admin: 07/28/18 22:06 Dose: 1 ea Documented by: Sodium Chloride ([place] Nasal) 1 - 2 sprays NA PRN PRN PRN Reason: Nasal Dryness/Congestion Stop: 08/25/18 20:58 Post Discharge Appointments Primary Care Physician Name Of Family Doctor: MARIA G Provider Appointment Comment: Please follow up as needed Psychiatrist Name of Psychiatrist: ROSE Psychiatrist's Therapist Name of Therapist: ROSE Therapist's Garage Manager Name of Garage Manager: [facility] Phone Number for Garage Manager: [phone] Case Management Appointment Comment: [address] [place] [address] Contact Information Discharge Discharge Address: [address] [place] [address] RAINE Tadeo [facility] CPT Code CPT Code 65964 (1) Depression Depression Type: unspecified Qualified Code(s): F32.9 - Major depressive disorder, single episode, unspecified
[2018-07-29] MEDS ORDERED: TRAZODONE HCL 50 MG TAB PO PRN ×2 (09:53→10:09)
[2018-07-29] MEDS: TRETINOIN 0.05% TOP SCH (21:12)
[2018-07-30 06:40] VITALS: TEMP 97.3
[2018-07-30] MEDS: ESCITALOPRAM OXALATE 20 MG TAB PO SCH (08:23)
[2018-07-30] MEDS: DOXYCYCLINE HYCLATE 100 MG CAP PO SCH (08:23)
[2018-07-30] MEDS: BUDESONIDE NAE SCH (08:23)
--- NOTE | 2018-07-30 09:05 | Discharge Summary ---
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 He first began to experience symptoms long ago when his father who was a pen ruler operator, was sent to alf for insurance violations. He was in alf from the patient's age of 7 until he was a senior in high school. At that point his father returned to the family, it was very conflictual between he and his mother and so the father left the house. They went on to divorce but father remains in the [facility]. He remained living with his mother who is currently selling their home and asking him to participate in that process. He has had multiple episodes over the years of times when he feels as if he forgets long periods of time as if dissociating. During one such a stressful time 5 years ago he did make suicide attempts and says that he has large periods of that time that he did not remember. More recently, several weeks ago, he met with his father to review MCATs for which the patient is studying and will take in August. At the time he saw his father his father also told him he was seeing another woman but did not want to tell his mother. This made the patient feel as if he was keeping a secret and declined the opportunity to meet this woman until such time as father informed mother. He also told the patient that same weekend that his grandfather had been diagnosed with cancer. The final blow came when his girlfriend came to visit. He thought that this would be helpful and supportive but it turned out to be a very difficult weekend, with the girlfriend not being supportive and treating him badly. For the first time in his life that weekend, he drank and was upset with himself for doing so as his father has had known problems with alcohol in the past. About 2 weeks ago after the girlfriend officially broke up with him, he went to see his PCP who then prescribed Lexapro. He was concerned that it may have slightly increased his suicidal thinking, called his PCP, who encouraged him to fight through it and increase the dose to 10 mg. The PCP also prescribed Ativan 0.5 mg twice daily which only served to make him tired. Friday he was feeling very depressed and anxious and says that he was reported to have called a friend which he doesn't remember doing. On Friday a friend came to visit, and found that he had gotten all of his pills out and she was worried that he had overdosed on them given that he appeared confused. He says that he was then brought to the ER after his friend called 911. Today her remains depressed, anxious and continues to have thoughts of suicide. He is ambivalent about being here, not knowing how it will help, but admits that if his friend had not shown up there was a high likelihood that he would have overdosed. He reports that prior to taking medications, he would sleep only 2-4 hrs per night, waking with panic attacks about his studies. Since medications he is sleeping to excess. Appetite has been down and is having to force himself to eat. Although he initially says that he does not see himself as a chronically anxious person, he goes on to say that he has a chronic need for neatness, and that it worsens when anxious, providing the example that when his girlfriend recently visited and things weren't going well, he had to excuse himself and cleaned to floors to cope. His girlfriend also said that she couldn't cope with his high level of anxiety. During times of high stress he has had multiple episode during which he doesn't remember his actions similar to Friday night. He denies aud/vis hallucinations. He denies SIB or symptoms of eating disorder. In terms of possible bipolar symptoms, he endorses times that he feels his moods cycle, including times of "euphoria" during which his sleep is "consistent", energy "pretty good", but does not endorse an increase in goal directed behaviors, spending behaviors or risk taking. Physical Exam Psychiatric Well-nourished, well-developed male appearing his stated age. Casually dressed, with good grooming and hygiene. Calm, cooperative, and pleasant. Normal gait and station, no abnormal movements. Seated in no acute distress with good eye contact. Speech is spontaneous, normal rate, volume, and tone. Thoughts are linear, logical, and goal-directed. Mood is "better, a little lower today." Affect is euthymic, reactive, appropriate, and mood congruent. No SI, HI, hallucinations, or paranoia. No delusions expressed. Alert and oriented. Level of intelligence estimated to be above average. Insight and judgment are good. Vital Signs (Past 24 Hours) Last Vital Signs Temp 36.3 C L 07/30/18 06:39 Pulse 84 07/30/18 06:39 Resp 16 07/30/18 06:39 BP 112/71 07/30/18 06:39 Pulse Ox 98 07/26/18 20:35 Principal Diagnosis Major depressive disorder, recurrent, severe without psychosis, with anxious distress. Psychiatric Data During the patient's 4-day hospitalization, he was actively engaged in treatment, attended groups and participated in therapy, and processed his psychosocial stressors. His escitalopram was increased to 20 mg daily, which he tolerated well. Lorazepam was discontinued as he reported it caused oversedation. He talked about his difficulty grieving the loss of his girlfriend and that relationship, as well as the interpersonal difficulties with his parents. He talked with both his parents while he was in the hospital, but stated a preference to maintain boundaries in his relationship with his father. He did contact a friend and told him about his current difficulties, and was able to identify that he has many supports outside of the hospital. 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 He reported sleep disruption, with difficulty falling and staying asleep, for which he initially tried hydroxyzine with little benefit. He had tried melatonin at home, also without benefit, so a trial of trazodone was started the night prior to discharge. He received 50 mg, again with little benefit, but agreed to try a higher dose of 100 mg as needed. His mood improved throughout his hospitalization, he consistently denied suicidal thoughts, and was able to develop a safety plan. He was referred to [facility] for outpatient therapy and psychiatric care. Day of Discharge Assessment Patient reports his mood is improved from admission, but states it is a little bit lower this morning than it had been yesterday. He denies suicidal thoughts, and is able to review his discharge safety plan. He denies side effects to medications. He received his first dose of trazodone 50 mg at bedtime last night for sleep, and does not think it had much effect. He is willing to try going up to 100 mg, and will follow up with his outpatient psychiatrist for ongoing treatment. He has a family meeting with his mother this afternoon, and is somewhat apprehensive about that, as he thinks it may be difficult for her to hear some of the things he wants to say. He is hopeful to be discharged after the meeting, and is willing to follow up at [facility]. Transition of Care Transition Of Care Record: was reviewed with the patient Advance Directives Advance Directives Information Provided: No Advance Directives: No Mental Health Advance Directive: No Advance Directives on File: No Living Will: No Power of Family Services Specialist: No Advance Directives Reason:: Declines as Mental Health Visit. Risk Factors Assessment Risk factors were mitigated by admission to the inpatient unit, adjusting medications to target sleep, mood and anxiety symptoms, psychoeducation about his diagnosis and recommended treatments, referral for outpatient care, involvement in groups and therapy on the unit, working on healthy coping skills and discharge safety plan, and family meeting with mother. The patient has demonstrated improvement in mood and resolution of suicidal thoughts, is able to review his discharge safety plan, and has outpatient care in place. He is requesting discharge, and is he is no longer at acute risk of harm to himself, can be managed as an outpatient at this time. He does not have risk factors for harm to others. Male: Yes : No Do You Have Access To A Gun?: No Health Problems: No Mental Health Diagnoses: Yes Substance Use Disorders: No Previous Attempt: Yes Family History of Suicide: No Previous Psychiatric Hospitalization: No Hopelessness: No Smoker: No Protective Factors Assessment : No Responsible for Young Children: No Employed: No Stable Relationships: No Supportive Family: Yes Tobacco Cessation at Discharge Tobacco Cessation Medication Prescribed at Discharge: Not Applicable/Non-Smoker Total Time Total Time Spent: Greater Than 30 Minutes Total Time Includes: Examination of the patient, Discharge Planning and Medication Reconciliation Discharge Data Lab Results 07/26/18 07/26/18 07/26/18 15:00 15:00 17:07 WBC 6.24 RBC 5.37 Hgb 14.7 Hct 44.2 MCV 82.3 MCH 27.4 MCHC 33.3 RDW Std Deviation 37.1 RDW Coeff of Trey 12.5 Plt Count 197 MPV 10.3 Immature Gran % (Auto) 0.2 Neut % (Auto) 55.6 Lymph % (Auto) 36.2 Door % (Auto) 7.2 Eos % (Auto) 0.5 Baso % (Auto) 0.3 Immature Gran # (Auto) 0.01 Neut # (Auto) 3.47 Lymph # (Auto) 2.26 Door # (Auto) 0.45 Eos # (Auto) 0.03 Baso # (Auto) 0.02 Sodium Potassium Chloride Carbon Dioxide Anion Gap BUN Creatinine Est Cr Clr Drug Dosing Est GFR ( Amer) Est GFR (Non-Af Amer) BUN/Creatinine Ratio Glucose Calcium Total Bilirubin AST ALT Alkaline Phosphatase Total Protein Albumin Globulin Albumin/Globulin Ratio TSH Urine Color Yellow Urine Appearance Clear Urine pH 7.0 Ur Specific [place] 1.029 Urine Protein Negative Urine Glucose (UA) Negative Urine Ketones Negative Urine Blood Negative Urine Nitrite Negative Urine Bilirubin Negative Urine Urobilinogen Negative Ur Leukocyte Esterase Negative Salicylates Urine Opiates Screen Neg Ur Methadone, Qual Neg Acetaminophen Urine Barbiturates Neg Ur Phencyclidine (PCP) Neg U Amphetamin/Meth Scrn Neg MDMA (Ecstasy) Screen Neg U Benzodiazepines Scrn Neg Ur Cocaine Metabolite Neg U Marijuana (THC) Screen Neg Ethyl Alcohol mg/dL 07/26/18 07/26/18 07/26/18 17:07 17:07 17:07 WBC RBC Hgb Hct MCV MCH MCHC RDW Std Deviation RDW Coeff of Trey Plt Count MPV Immature Gran % (Auto) Neut % (Auto) Lymph % (Auto) Door % (Auto) Eos % (Auto) Baso % (Auto) Immature Gran # (Auto) Neut # (Auto) Lymph # (Auto) Door # (Auto) Eos # (Auto) Baso # (Auto) Sodium 140 Potassium 3.7 Chloride 105 Carbon Dioxide 31 Anion Gap 4.0 BUN 12 Creatinine 1.12 Est Cr Clr Drug Dosing 96.9 Est GFR ( Amer) 109.0 Est GFR (Non-Af Amer) 94.1 BUN/Creatinine Ratio 10.6 Glucose 104 H Calcium 8.8 Total Bilirubin 0.5 AST 18 ALT 22 Alkaline Phosphatase 51 Total Protein 7.6 Albumin 4.2 Globulin 3.4 Albumin/Globulin Ratio 1.2 TSH 0.701 Urine Color Urine Appearance Urine pH Ur Specific [place] Urine Protein Urine Glucose (UA) Urine Ketones Urine Blood Urine Nitrite Urine Bilirubin Urine Urobilinogen Ur Leukocyte Esterase Salicylates < 1.7 L Urine Opiates Screen Ur Methadone, Qual Acetaminophen < 2 L Urine Barbiturates Ur Phencyclidine (PCP) U Amphetamin/Meth Scrn MDMA (Ecstasy) Screen U Benzodiazepines Scrn Ur Cocaine Metabolite U Marijuana (THC) Screen Ethyl Alcohol mg/dL < 3.0 Hospital Course (1) Depression: 07/27 - Increase Lexapro to 20 mg daily and monitor for increase in SI or activation - Q 15 min checks for safety - Encourage participation in group and individual counseling - Assist the patient to explore healthy coping strategies - Encourage participation in group and individual counseling - Family meeting - Contact the Office of Student Care and Advocacy as needed. - Safety planning - Aftercare planning 07/28 - Continue current meds and plan - Family meeting - Safety planning 07/29 -Continue escitalopram 20 mg daily. Discontinue hydroxyzine for sleep as patient reports it was poorly effective, and start trial of trazodone 50 mg at bedtime as needed, may repeat x1 before midnight. Reviewed risks, benefits, and side effects, including the risk of morning sedation and priapism. -Family meeting with mother tomorrow. -Refer for outpatient treatment. 07/21 -Family meeting with mother this afternoon, and then discharged home. -Trazodone 50 mg at bedtime last night was insufficient for sleep, so will increase to 100 mg at bedtime as needed insomnia. -Lorazepam discontinued due to oversedation, and patient does not want to take the medication with him, so will ask the pharmacy to dispose of it safely. -Follow-up with psychiatric care and therapy at [facility]. (2) Anxiety: 07/27 - Will continue to evaluate/differentiate between JILLIAN, OCD and anxiety associated only with depression - Assist the patient to explore mindfulness/grounding exercises - Medications as above. 07/28 - Continue current meds and plan Post Discharge Appointments Primary Care Physician Name Of Family Doctor: [facility] Primary Care Provider Appointment Comment: Please follow up as needed Psychiatrist Name of Psychiatrist: [facility] - Dr. Barkley Psychiatrist's Date of Appointment with Psychiatrist: 08/12/18 Time of Appointment with Psychiatrist: 2:30 p.m. please arrive at 2:15 at the latest for paperwork Psychiatric Appointment Comment: [address] [facility] Therapist Name of Therapist: ROSE Nathan Therapist's Date of Therapist Appointment: 08/04/18 Time of Therapist Appointment: 3:00 p.m. Therapy Appointment Comment: [address] [facility] Expediter Name of Expediter: [facility] Advocacy Phone Number for Expediter: [phone] Case Management Appointment Comment: [address] [facility] Smoking Cessation Counseling Tobacco Cessation Medication Prescribed at Discharge: Not Applicable/Non-Smoker Contact Information Discharge Discharge Address: [address] [place] [address] RA[place] Tadeo [id number] Discharge Plan Discharge Items Patient Disposition: Home - Self-Care Reason For Visit: MAJOR DEPRESSIVE DISORDER Discharge Diagnosis: major depressive disorder Discharge Goals: Improve disease control, Improve function, Learn about illness, Specific goals and Therapeutic intervention Specific Goals: refer for outpatient treatment Activity: Per 'Additional Instructions' section Non-emergency contact: Primary Care Provider, Psychiatrist and Therapist Call non-emergency contact if: you have any medication questions and your symptoms worsen Follow-up/Referrals: PCP,NO [Primary Care Provider] - Diet: Regular Addtl Provider Instructions: SPECIAL CARE INSTRUCTIONS: 1. Follow through with your scheduled aftercare appointments. If unable to keep an appointment, please call to reschedule. 2. Take your medication only as prescribed. Medication should not be changed or stopped without the approval of your doctor. In the event of worsening symptoms or concerns about side effects, contact your doctor immediately. 3. Utilize new healthy coping skills, anger management skills, and stress management skills learned during your hospitalization. Journal feelings and process them with a support person. Identify stressors or situations that may result in relapse, deterioration or inappropriate behaviors and develop a plan to deal with those issues. 4. If your coping skills are ineffective and you are in crisis, contact your outpatient providers for direction. If unable to reach your providers, please call the CAN HELP LINE AT or go to the closest Emergency Room. 5. Avoid alcohol and un-prescribed drugs. 6. You have been provided with the Mental Health Advance Directives Pamphlet for your review. AFTERCARE APPOINTMENTS: * Please call your insurance company prior to your scheduled appointment to confirm your aftercare providers are covered. Take your insurance information to your appointments. WHO TO CALL AND WHEN: Medical Emergencies: For questions or emergencies related to your hospital stay, please contact the Inpatient Behavioral Health Unit at [phone]. A splitter hand is on-call 02/12 for the Behavioral Health Unit for emergencies At any time you feel your situation is an emergency, you may also call 911 immediately. Your Doctors Instructions noted above were prepared by provider Latesha Coronado MD. Prescriptions: New trazodone 100 mg tablet 100 mg PO HS PRN (Reason: insomnia) Qty: 30 RF: 0 escitalopram oxalate 20 mg Tablet 20 mg PO QAM Qty: 30 RF: 0 Continued doxycycline hyclate 100 mg capsule 100 mg PO DAILY RF: 0 tretinoin 0.05 % Cream 1 applic TOPICAL HS RF: 0 budesonide 3 mg Capsule,Delayed,Extend.Release 0.6 mg PO BID RF: 0 Discontinued lorazepam 0.5 mg tablet 0.5 mg PO BID PRN (Reason: Anxiety) RF: 0 escitalopram oxalate 10 mg tablet 10 mg PO DAILY RF: 0 Stand-Alone Forms: [facility] Discharge Orders: Discharge Order (Routine); Ordered 07/30/18 Ordered By: Latesha Coronado Admission Data Admit Date/Time: 07/26/18 20:12 Attending Provider: Latesha Coronado Admit Provider: Tonya Mendoza Primary Care Provider: PCP,NO Service: Psychiatry Other Interventions: PSY Interdisciplinary Discharge Planning Last Done: 07/30/18 09:25 Pending Studies at Discharge: Yes
[2018-07-30] MEDS ORDERED: DESTROY THIS MEDICATION ONE (09:40)
[2018-07-30 15:28] VITALS: BP 129/76; PULSE 57
[2018-08-03 11:44] VITALS: O2SAT 98
== END 2018-07-30 16:10 | disposition home or self-care (01) | DRG 885 ==
LOC: ED 14:21 → 3S 20:12